=== PATIENT | female | born 1975 | race African-American/Black ===

== ENCOUNTER 2023-03-21 13:46 | Outpatient (CLI) | payer MEDICARE | END 2023-03-21 13:47 | disposition home or self-care (01) | LOC: BICULT 13:46 | PROVIDERS: ATTEND Family Medicine | DX: N85.2 Hypertrophy of uterus (principal); R93.89 Abnormal findings on diagnostic imaging of other specified body structures; N85.4 Malposition of uterus; Z86.2 Personal history of diseases of the blood and blood-forming organs and certain disorders involving the immune mechanism | CPT/HCPCS: 76856 ==

== ENCOUNTER 2023-06-21 08:15 | Outpatient (CLI) | payer MEDICARE | END 2023-06-21 08:16 | disposition home or self-care (01) | LOC: BICULT 08:15 | PROVIDERS: ATTEND Family Medicine | DX: R93.89 Abnormal findings on diagnostic imaging of other specified body structures (principal) | CPT/HCPCS: 76856 ==